=== PATIENT | male | born 1950 | race Caucasian/White ===

== ENCOUNTER 2018-01-27 17:45 | Observation (INO) | payer MEDICARE ==
--- NOTE | 2018-01-27 18:11 | RAD ---
PORTABLE CHEST ONE VIEW: 01/27/18 at 5:10 p.m. HISTORY: Chest pain. FINDINGS: Comparison is made with exam of 03/14/17. The heart size is normal. The aorta is tortuous. The lungs are well expanded without lobar consolidat ion, pneumothoraces or pleural effusions. IMPRESSION: No acute process. POS: H
[2018-01-27 18:15] LABS: #Basophils 0.1 thou/uL (0.0-0.2); #Eosinphils 0.3 thou/uL (0.0-0.7); #Lymphocytes 2.4 thou/uL (1.20-3.40); #Monocytes 0.5 thou/uL (0.11-0.59); #Neutrophils 2.6 thou/uL (1.40-6.50); %Basophils 0.9 % (0.0-1.0); %Eosinophils 5.1 % (0.0-10.0); %Lymphocytes 40.7 % (21.0-51.0); %Neutrophils 44.4 % (42.0-75.0); Hemoglobin 14.4 g/dL (14.0-18.0); Mean Corpuscular HGB CONC 35.8 g/dL (32.0-36.0); Mean Corpuscular Hemoglobin 32.1 pg (27.0-31.0); Mean Corpuscular Volume 89.6 fL (78.0-98.0); Mean Platelet Volume 6.8 fL (7.4-10.4); Platelet Count 169 thou/uL (130-400); RBC Distribution Width 13.1 % (11.5-14.5); White Blood Cell (WBC) Count 5.9 thou/uL (4.8-10.8)
[2018-01-27 18:34] LABS: ALT (SGPT) 13 U/L (8-55); AST (SGOT) 15 U/L (5-34); Albumin 4.3 g/dL (3.4-4.8); Alkaline Phosphatase 62 U/L (40-150); Anion Gap 14 mmol/L (10-20); BUN (Urea Nitrogen) 11 mg/dL (8.4-25.7); Bilirubin, Total 0.5 mg/dL (0.2-1.2); CK (CPK) 65 U/L (30-200); Calc. Creatinine Clearance 0 mL/min (70-130); Calcium 8.9 mg/dL (7.8-10.44); Carbon Dioxide 20 mmol/L (23-31); Chloride 109 mmol/L (98-107); Estimated GFR-MDRD 83; Globulin 2.5 g/dL (2.4-3.5); Glucose 212 mg/dL (80-115); Lipase 35 U/L (8-78); Potassium 4.1 mmol/L (3.5-5.1); Protein, Total 6.8 g/dL (5.8-8.1); Sodium 139 mmol/L (136-145)
[2018-01-27 18:41] LABS: CKMB 0.8 ng/mL (0-6.6); Troponin I Less than 0.010 ng/mL (< 0.028)
[2018-01-27] MEDS ORDERED: Nitroglycerin 2% Ointment 1 INCH/1 GM Packet ONE (18:56)
[2018-01-27 21:30] LABS: Troponin I Less than 0.010 ng/mL (< 0.028)
[2018-01-27] MEDS ORDERED: Ondansetron HCl/PF 4 MG/2 ML Vial IVP PRN (22:05)
[2018-01-27] MEDS ORDERED: Ondansetron ODT 4 MG TAB SL PRN (22:05)
[2018-01-27] MEDS ORDERED: Acetaminophen 325 MG TAB PO PRN (22:05)
[2018-01-27 22:08] VITALS: BMI 35.3
[2018-01-27] MEDS ORDERED: Dextrose 50% Abboject 50 ML SYRINGE SLOW IVP PRN (23:53)
[2018-01-27] MEDS ORDERED: HumaLOG 300 UNITS/3 ML VIAL SC PRN (23:53)
[2018-01-27] MEDS ORDERED: Dextrose 5% in Water 1,000 ML IV PRN (23:53)
[2018-01-28 01:14] LABS: Troponin I Less than 0.010 ng/mL (< 0.028)
--- NOTE | 2018-01-28 03:58 | HP ---
CODE STATUS: Patient is FULL CODE. PRIMARY CARE PHYSICIAN: from Cindy. TIME OF EVALUATION: 7:40 p.m. CHIEF COMPLAINT: Chest pain. HISTORY OF PRESENT ILLNESS: This is a 67-year-old male patient with past medical history of hyperten daphney, diabetes, hyperlipidemia, previous stent placement, medical noncompliance. Patient came to the hospital after having a chest pain that started when he was watching a movie, this was around 5:00 p .m. Chest pain was 6/10, probably it could get worse, the pain radiated to the jaw, associated with headache. No clear triggers, no alleviating factors. REVIEW OF SYSTEMS: Constitutional: No fever, no chills, generalized weakness. Respiratory: No cou gh, no sputum production or shortness of breath. Cardiovascular: No chest pain as mentioned above. Gastrointestinal: No nausea, vomiting, diarrhea or abdominal pain. 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 Patient re ported headache associated with the chest pain feeling lightheaded. Genitourinary: No burning on ur ination. Extremities: No leg swelling. All other systems were reviewed and are negative except for the findings mentioned above. PAST MEDICAL HISTORY: Positive for coronary artery disease, prostate cancer, diabetes, hyperlipidemi a, hypertension PAST SURGICAL HISTORY: History of hernia repair, prostatectomy. PSYCHIATRIC HISTORY: No previous psychiatric history. SOCIAL HISTORY: Patient drinks socially, every week, no drugs. Quit smoking 25 years ago. Lives in home with family. FAMILY HISTORY: Reported as negative. DRUG ALLERGIES: No known drug allergies. REPORTED MEDICATIONS: Coenzyme Q10, aspirin, lisinopril, metformin, allopurinol, isosorbide mononitr ate, Effient, Protonix, atorvastatin, metoprolol, also patient reported no compliance. PHYSICAL EXAMINATION: VITAL SIGNS: On presentation, blood pressure 115/79 with heart rate 79, respiratory rate was 16, tem perature 98, pain is 6/10, oxygen saturation 94% on room air. GENERAL APPEARANCE: The patient is alert, oriented, not in any acute distress. HEENT: Eye, normal conjunctivae. Moist oral mucosa. Anicteric. NECK: No JVD. RESPIRATORY: Bilateral air entry. No rales, no wheezing. Symmetric expansion. CARDIOVASCULAR: Normal rate, regular rhythm. No murmurs, no gallop. No edema. ABDOMEN: Soft, normal bowel sounds. MUSCULOSKELETAL: Baseline range of motion and strength. No tenderness. SKIN: Warm and intact. No pallor, no rash, no redness. NEUROLOGIC: Baseline sensory. No evidence of any new focal weakness. Baseline speech. Cranial ner ve seems to be intact. PSYCHIATRIC: Patient is in a good mood. No anxiety, oriented, optimal judgment. IMAGING: EKG was reviewed. The patient had normal sinus rhythm with a rate of 72 with TX 164, QRS 8 0, QT corrected 459. Normal EKG. The chest x-ray was reviewed. The patient had no acute process. LABORATORY DATA: Reviewed. White count 5.9, hemoglobin 14.4, MCV 89.6, platelet count 269,000. Sod ium 139, potassium 4.1, chloride 109, carbon dioxide 20, glucose 212. Troponin was negative x3. ASSESSMENT AND PLAN: The patient will be placed in the hospital with following medical problems: 1. Chest pain, rule out acute coronary syndrome. Patient has a strong cardiac history with previous stent placement, high risk for coronary artery disease. Patient has high for stress test, the refore we consult Cardiology. We will follow recommendations. Chest pain is typical. Patient has r eported history of noncompliance. We will reconcile home medications as per last reconciliation. 2. Controlled hypertension. We will reconcile home medications. We will adjust treatment as needed. 3. Uncontrolled diabetes with hyperglycemia, blood sugar 212, we will reconcile home medications. We will place the patient on sliding scale, low-carbohydrate diet. 4. Hyperlipidemia, advised to be on a low-cholesterol diet, we will reconcile home medications. 5. Deep venous thrombosis prophylaxis.
[2018-01-28] MEDS ORDERED: Nitroglycerin 2% Ointment 1 INCH/1 GM Packet TOP SCH (06:00)
[2018-01-28 07:21] LABS: #Eosinphils 0.3 thou/uL (0.0-0.7); #Lymphocytes 2.2 thou/uL (1.20-3.40); #Monocytes 0.7 thou/uL (0.11-0.59); #Neutrophils 3.3 thou/uL (1.40-6.50); %Basophils 0.2 % (0.0-1.0); %Eosinophils 4.5 % (0.0-10.0); %Monocytes 10.1 % (0.0-10.0); %Neutrophils 51.2 % (42.0-75.0); Hemoglobin 14.3 g/dL (14.0-18.0); Mean Corpuscular HGB CONC 33.9 g/dL (32.0-36.0); Mean Corpuscular Hemoglobin 30.7 pg (27.0-31.0); Mean Corpuscular Volume 90.6 fL (78.0-98.0); Mean Platelet Volume 7.1 fL (7.4-10.4); Platelet Count 151 thou/uL (130-400); RBC Distribution Width 13.2 % (11.5-14.5); Red Blood Cell (RBC) Count 4.65 mill/uL (4.70-6.10); White Blood Cell (WBC) Count 6.5 thou/uL (4.8-10.8)
[2018-01-28 07:43] LABS: Anion Gap 15 mmol/L (10-20); BUN (Urea Nitrogen) 11 mg/dL (8.4-25.7); Calc. Creatinine Clearance 119 mL/min (70-130); Calcium 8.9 mg/dL (7.8-10.44); Carbon Dioxide 22 mmol/L (23-31); Chloride 107 mmol/L (98-107); Estimated GFR-MDRD Greater than 90; Glucose 150 mg/dL (80-115); Potassium 4.1 mmol/L (3.5-5.1); Sodium 140 mmol/L (136-145)
[2018-01-28] MEDS ORDERED: Milk Of Magnesia 30 ML UDCUP PO PRN (08:31)
[2018-01-28] MEDS ORDERED: Acetaminophen 325 MG TAB PO PRN (08:31)
[2018-01-28] MEDS ORDERED: Ondansetron HCl/PF 4 MG/2 ML Vial IVP PRN (08:31)
[2018-01-28] MEDS ORDERED: Sodium Chloride 0.65% Nasal 44 ML BOT EA NARE PRN (08:31)
[2018-01-28] MEDS ORDERED: Nitroglycerin 0.4 MG TAB (25 Tab Bottle) SL PRN (08:31)
[2018-01-28] MEDS ORDERED: Artificial Tear Sol 15 ML BOT EA EYE PRN (08:31)
[2018-01-28] MEDS ORDERED: Loperamide HCl 2 MG CAP PO PRN (08:31)
[2018-01-28] MEDS ORDERED: Eucerin (Mineral Oil/Petrolatum,White) 30 gm Jar TOP PRN (08:31)
[2018-01-28] MEDS ORDERED: Diabetic Tussin 200 MG/10 ML UDCUP PO PRN (08:31)
[2018-01-28] MEDS ORDERED: Loratadine 10 MG TAB PO PRN (08:31)
[2018-01-28] MEDS ORDERED: hydrALAZINE 20 MG/ML VIAL SLOW IVP PRN (08:31)
[2018-01-28] MEDS ORDERED: Zolpidem Tartrate 5 MG TAB PO PRN (08:31)
[2018-01-28] MEDS ORDERED: Famotidine 20 MG TAB PO PRN (08:31)
[2018-01-28] MEDS ORDERED: HYDROcodone/Acetaminophen 5/325 mg Tablet PO PRN (08:31)
[2018-01-28] MEDS ORDERED: Senokot 8.6 MG TAB PO PRN (08:31)
[2018-01-28] MEDS ORDERED: Mag-Al 1200 mg/1200 mg/30 ML UDCUP PO PRN (08:31)
[2018-01-28] MEDS ORDERED: Ondansetron ODT 4 MG TAB PO PRN (08:31)
[2018-01-28] MEDS ORDERED: Chloraseptic Spray 180 ml Bottle PO PRN (08:31)
[2018-01-28] MEDS ORDERED: Aspirin 325 MG TAB PO SCH (09:00)
[2018-01-28] MEDS ORDERED: Lisinopril 20 MG TAB PO SCH ×2 (09:00→21:00)
[2018-01-28 09:02] LABS: Cardiac Risk 3.5 (Less than 4.5)
[2018-01-28] MEDS: Enoxaparin Sodium 40 MG/0.4 ML SYRINGE SC SCH (10:25)
[2018-01-28] MEDS: Ubidecarenone 50 MG CAP PO SCH (10:26)
[2018-01-28] MEDS: Metoprolol Tartrate 25 MG TAB PO SCH ×2 (10:26→21:17)
[2018-01-28] MEDS: Prasugrel 10 MG TAB PO SCH (10:26)
--- NOTE | 2018-01-28 13:27 | PDOC.PN ---
- Subjective Encounter Start Date: 01/28/18 Encounter Start Time: 08:10 Patient seen and examined. No new complaints. No overnight events - Objective Resuscitation Status: Resuscitation Status FULL:Full Resuscitation MAR Reviewed: Yes Vital Signs & Weight: Vital Signs (12 hours) Temp Pulse Resp BP BP Pulse Ox 01/28/18 12:17 53 L 20 152/75 H 98 01/28/18 10:25 131/71 01/28/18 07:42 96.8 F L 57 L 18 131/71 98 01/28/18 04:10 97.7 F 55 L 18 163/74 H 99 Weight Weight 216 lb I&O: 01/27/18 01/28/18 01/29/18 06:59 06:59 06:59 Intake Total 240 Balance 240 Result Diagrams: 01/28/18 06:50 01/28/18 06:50 Additional Labs: Accuchecks 01/28/18 05:46 POC Glucose 132 H Phys Exam - Physical Examination Constitutional: NAD HEENT: PERRLA, moist MMs, sclera anicteric Neck: no JVD, supple Respiratory: no wheezing, no rales, no rhonchi Cardiovascular: RRR, no significant murmur, no rub Gastrointestinal: soft, non-tender, no distention, positive bowel sounds Musculoskeletal: no edema, pulses present Neurological: non-focal, normal sensation, moves all 4 limbs Lymphatic: no nodes Psychiatric: normal affect, A&O x 3 Skin: no rash, normal turgor Dx/Plan (1) Chest pain Code(s): R07.9 - CHEST PAIN, UNSPECIFIED Status: Acute (2) Back pain Code(s): M54.9 - DORSALGIA, UNSPECIFIED Status: Chronic (3) CAD (coronary artery disease) Code(s): I25.10 - ATHSCL HEART DISEASE OF [place] CORONARY ARTERY W/O ANG PCTRS Status: Chronic (4) DM2 (diabetes mellitus, type 2) Status: Chronic (5) Dyslipidemia Code(s): E78.5 - HYPERLIPIDEMIA, UNSPECIFIED Status: Chronic (6) GERD (gastroesophageal reflux disease) Code(s): K21.9 - GASTRO-ESOPHAGEAL REFLUX DISEASE WITHOUT ESOPHAGITIS Status: Chronic (7) Gout Code(s): M10.9 - GOUT, UNSPECIFIED Status: Chronic (8) HTN (hypertension) Code(s): I10 - ESSENTIAL (PRIMARY) HYPERTENSION Status: Chronic (9) Obesity (BMI 30.0-34.9) Code(s): E66.9 - OBESITY, UNSPECIFIED Status: Chronic - Plan cont current plan of care * medication reviewed as below * symptomatic treatment * cardiology consulted * based on cardiology will consider discharge. Review of Systems - Review of Systems Eyes: negative: Pain, Vision Change, Conjunctivae Inflammation, Eyelid Inflammation, Redness, Other ENT: negative: Ear Pain, Ear Discharge, Nose Pain, Nose Discharge, Nose Congestion, Mouth Pain, Mouth Swelling, Throat Pain, Throat Swelling, Other Respiratory: negative: Cough, Dry, Shortness of Breath, Hemoptysis, SOB with Excertion, Pleuritic Pain, Sputum, Wheezing Cardiovascular: negative: chest pain, palpitations, orthopnea, paroxysmal nocturnal dyspnea, edema, light headedness, other Gastrointestinal: negative: Nausea, Vomiting, Abdominal Pain, Diarrhea, Constipation, Melena, Hematochezia, Other Genitourinary: negative: Dysuria, Frequency, Incontinence, Hematuria, Retention , Other Musculoskeletal: negative: Neck Pain, Shoulder Pain, Arm Pain, Back Pain, Hand Pain, Leg Pain, Foot Pain, Other Skin: negative: Rash, Lesions, Jose, Bruising, Other - Medications/Allergies Allergies/Adverse Reactions: Allergies Allergy/AdvReac Type Severity Reaction Status Date / Time No Known Allergies Allergy Verified 01/27/18 22:07 Medications: Current Medications Acetaminophen (Tylenol) 650 mg PO Q4H PRN PRN Reason: Headache/Fever or Mild Pain Hydrocodone Bitart/Acetaminophen ([place] 5/325) 1 tab PO Q4H PRN PRN Reason: Moderate Pain (4-6) Al Hydroxide/Mg Hydroxide (Maalox) 15 ml PO Q4H PRN PRN Reason: Heartburn or Indigestion Artificial Tears (Tears Renewed 15ml Bottle) 0 drop EA EYE PRN PRN PRN Reason: Dry Eyes Aspirin (Aspirin Chewable) 81 mg PO DAILY [facility] Last Admin: 01/28/18 10:28 Dose: 81 mg Atorvastatin Calcium (Lipitor) 40 mg PO HS [facility] Coenzyme Q10 (Coenzyme Q10) 200 mg PO DAILY [facility] Last Admin: 01/28/18 10:26 Dose: 200 mg Dextrose/Water (Dextrose 50%) 25 gm SLOW IVP PRN PRN PRN Reason: Hypoglycemia Enoxaparin Sodium (Lovenox) 40 mg SC 0900 [facility] Last Admin: 01/28/18 10:25 Dose: 40 mg Famotidine (Pepcid) 20 mg PO BIDPRN PRN PRN Reason: Heartburn or Indigestion Glucagon (Glucagon) 1 mg IM PRN PRN PRN Reason: Hypoglycemia Guaifenesin (Robitussin Sf) 200 mg PO Q4H PRN PRN Reason: Cough Hydralazine HCl (Apresoline) 10 mg SLOW IVP Q4H PRN PRN Reason: Systolic BP > 180 Dextrose/Water (D5w) 1,000 mls @ 0 mls/hr IV .Q0M PRN; As Directed PRN Reason: Hypoglycemia Insulin Human Lispro (Humalog) 0 units SC .MILD SLIDING SCALE PRN PRN Reason: Mild Correctional Scale Isosorbide Mononitrate (Imdur) 120 mg PO DAILY [facility] Last Admin: 01/28/18 10:26 Dose: 120 mg Lisinopril (Zestril) 40 mg PO DAILY [facility] Last Admin: 01/28/18 10:25 Dose: Not Given Loperamide HCl (Imodium) 2 mg PO PRN PRN PRN Reason: Diarrhea/Loose Stools Loratadine (Claritin) 10 mg PO DAILYPRN PRN PRN Reason: Sinus Symptoms Magnesium Hydroxide (Milk Of Magnesium) 30 ml PO DAILYPRN PRN PRN Reason: Constipation Metoprolol Tartrate (Lopressor) 12.5 mg PO BID [facility] Last Admin: 01/28/18 10:26 Dose: 12.5 mg Mineral Oil/White Petrolatum (Eucerin Cream) 0 gm TOP BIDPRN PRN PRN Reason: Dry Skin Nitroglycerin (Nitrostat) 0.4 mg SL Q5MIN PRN PRN Reason: Chest Pain Ondansetron HCl (Zofran Odt) 4 mg PO Q6H PRN PRN Reason: Nausea/Vomiting Ondansetron HCl (Zofran) 4 mg IVP Q6H PRN PRN Reason: Nausea/Vomiting Pantoprazole Sodium (Protonix) 40 mg PO HS [facility] Phenol (Chloraseptic [place] 180 Ml Bot) 0 ml PO PRN PRN PRN Reason: Sore Throat Prasugrel (Effient) 10 mg PO DAILY [facility] Last Admin: 01/28/18 10:26 Dose: 10 mg Senna (Senokot) 2 tab PO HSPRN PRN PRN Reason: Constipation Sodium Chloride ([place] Nasal [place] 0.65%) 0 ml EA NARE QIDPRN PRN PRN Reason: Nasal Congestion Zolpidem Tartrate (Ambien) 5 mg PO HSPRN PRN PRN Reason: Insomnia
--- NOTE | 2018-01-28 15:22 | DIS ---
DATE OF ADMISSION: 01/27/2018 DATE OF DISCHARGE: 01/28/2018 PRIMARY CARE PHYSICIAN: Cindy Zazueta. DISCHARGE DISPOSITION: Home. PRIMARY DISCHARGE DIAGNOSIS: Chest pain, ruled out acute coronary syndrome. SECONDARY DISCHARGE DIAGNOSES: Chronic low back pain, coronary artery disease, diabetes type 2, hype rtension, dyslipidemia, gastroesophageal reflux disease, obesity with BMI 34, gout. PRIMARY PROCEDURE AND OPERATION: None. RADIOLOGICAL INVESTIGATION: Chest x-ray was normal. SIGNIFICANT LABORATORY DATA: WBC 6.5, hemoglobin 14.3, platelet 151. Sodium 140, potassium 4.1, BUN 11, creatinine 0.81, calcium 8.9. Cardiac enzymes negative x3. LDL 66. DISCHARGE MEDICATIONS: The patient will continue all his previous home medications, aspirin 81 mg p. o. daily, Lipitor 40 mg p.o. at bedtime, Imdur 120 mg p.o. daily, lisinopril 40 mg p.o. daily, metfor min 500 mg p.o. b.i.d., Lopressor 12.5 mg p.o. b.i.d., Protonix 40 mg p.o. at bedtime, Effient 10 mg p.o. daily, coenzyme Q10 200 mg p.o. daily. CONTRAINDICATIONS: None. CODE STATUS: FULL CODE. INPATIENT CONSULTANTS: Cardiology was consulted. TEST RESULTS PENDING ON DISCHARGE: None. ALLERGIES: No known drug allergy. DISCHARGE PLAN: Post hospital, the patient will follow up with primary care physician. HOSPITAL COURSE: A 67-year-old male who was admitted by Dr. Rodriguez for chest pain. Please see his H&P for further detail. The patient recently had a stress test done and that is why we consulted Ca rdiology. Patient had multiple risk factors for coronary artery disease as well as he has history of CAD with stenting. This time, his EKG was unremarkable. His troponins remain negative. His teleme try remained unremarkable. Cardiology was consulted. If Cardiology is okay, then we will consider d ischarging him home later on today. Depending upon cardiology evaluation, the patient most likely wi ll be discharged home on his previous medication. The patient is seen and examined at bedside today. Please see my progress note from today for furthe r details.
[2018-01-28] MEDS ORDERED: Atorvastatin Calcium 40 MG TAB PO SCH (21:00)
--- NOTE | 2018-01-29 05:38 | CON ---
DATE OF CONSULTATION: 01/28/2018 HISTORY OF PRESENT ILLNESS: Khris Smalls is a 67-year-old, white male, who is followed with Dr. Pugh for some time. In 2012, he has stent placement in the right coronary artery. He subsequently had restenosis and then repeat stenting of the right coronary artery. He was first seen here in 2014 and was found to have LAD disease and underwent stenting of that area. He had recurrent chest pain one month later, underwent repeat catheterization and had a patent stent. However, there is a jailed diagonal stenosis of 80% at the ostium. His last catheterization was in 02/2017. He again was found to have patent stents in the right coronary artery and the LAD, but had a 90% ostial diagonal branch stenosis. Mr. Smalls says that overall he has recently been doing well without any significant chest pain for the last 4 or 5 months. He was just seen in the office on 01/12/2018 without complaints. He now was sitting at a movie with his granddaughter and began to have substernal chest pressure that was more intense than what he has experienced and this lasted approximately 30 minutes. He came to the emergency room, and cardiac enzymes have been unremarkable. He does not have any nitroglycerin tablets or spray to use p.r.n. PAST MEDICAL HISTORY: Coronary artery disease, hypertension, diabetes, hypercholesterolemia, reflux, history of prostate carcinoma. OPERATIONS: Prostatectomy, hernia repair. MEDICATIONS: Aspirin 81 daily, atorvastatin 40 at bedtime, isosorbide mononitrate 120 q.a.m., lisinopril 40 q.a.m., metformin 500 b.i.d., metoprolol 12.5 b.i.d., Protonix 40 at bedtime, Effient 10 mg daily, CoQ10 at 200 mcg daily. ALLERGIES: None. SOCIAL HISTORY: He stopped smoking 25 years ago. He drinks. FAMILY HISTORY: Unremarkable. REVIEW OF SYSTEMS: Twelve-point review of systems is otherwise negative. PHYSICAL EXAMINATION: VITAL SIGNS: Blood pressure 158/72, pulse of 56. HEENT: PERRL. NECK: Supple. CHEST: Clear. CARDIAC: S1 and S2 are normal, without any S3, S4, or murmurs. ABDOMEN: Normal bowel sounds without tenderness. EXTREMITIES: Revealed no clubbing, cyanosis, or edema. NEUROLOGIC: Grossly intact. SKIN: Warm and dry. LABORATORY AND DIAGNOSTIC DATA: EKG reveals normal sinus rhythm and is unremarkable. CBC is unremarkable. Sodium 140, potassium 4.3, chloride 107, carbon dioxide 22, BUN 11, creatinine 0.81. Cholesterol 143, triglycerides 179 , HDL 41, LDL 66. Troponin I is negative x3. IMPRESSION: 1. Atypical chest discomfort. 2. Coronary artery disease with stent in the left anterior descending and the right coronary artery. He apparently has a 90% ostial diagonal stenosis. There is a jailed vessel. 3. Hypertension. 4. Diabetes. 5. Hypercholesterolemia, under good control. 6. Gastroesophageal reflux disease. 7. Prostate cancer. PLAN: I do not feel any further evaluation is warranted with patient having a catheterization less than 1 year ago. I did write a prescription for nitrolingual spray, so he can use this on a p.r.n. basis in the hopes of reducing the chance for readmission in the near future. I feel he may be discharged. PILAR
[2018-01-29 07:52] VITALS: BP 140/77; TEMP 97.9
[2018-01-29] MEDS: Metoprolol Tartrate 25 MG TAB PO SCH (08:16)
[2018-01-29] MEDS: Prasugrel 10 MG TAB PO SCH (08:17)
[2018-01-29] MEDS: Enoxaparin Sodium 40 MG/0.4 ML SYRINGE SC SCH (08:17)
[2018-01-29] MEDS: Ubidecarenone 50 MG CAP PO SCH (08:28)
== END 2018-01-29 08:51 | disposition home or self-care (01) ==
LOC: ERS 17:45 → 2NO 19:22
PROVIDERS: ADMIT Hospitalist; ATTEND Hospitalist
DX: R07.89 Other chest pain (principal); I10 Essential (primary) hypertension; E11.65 Type 2 diabetes mellitus with hyperglycemia; I25.10 Atherosclerotic heart disease of native coronary artery without angina pectoris; E78.00 Pure hypercholesterolemia, unspecified; E78.2 Mixed hyperlipidemia; G89.29 Other chronic pain; M54.5 Low back pain; M10.9 Gout, unspecified; K21.9 Gastro-esophageal reflux disease without esophagitis; E66.9 Obesity, unspecified; Z68.34 Body mass index [BMI] 34.0-34.9, adult; Z87.891 Personal history of nicotine dependence; Z91.14 Patient's other noncompliance with medication regimen; Z79.82 Long term (current) use of aspirin; Z79.84 Long term (current) use of oral hypoglycemic drugs; Z79.899 Other long term (current) drug therapy; Z95.5 Presence of coronary angioplasty implant and graft
CPT/HCPCS: 71045; 80048; 80053; 80061; 82550; 82553; 82962 ×2; 83690; 84484 ×3; 85025 ×2; 93005; 94760 ×2; 96372; 99285; G0378 ×2; 36415; 36416; A4216; J1650

== ENCOUNTER 2018-04-02 21:17 | Emergency (ER) | payer MEDICARE ==
--- NOTE | 2018-04-02 22:10 | CT ---
CERVICAL SPINE CT WITHOUT CONTRAST 04/02/18 COMPARISON: None. HISTORY: Trauma, pain. TECHNIQUE: Serial axial CT imaging at 2.5 mm intervals from skull base through lung apices without contrast. Cor onal and sagittal reformatted imaging obtained. FINDINGS: The visualized lung apices appear grossly unremarkable. The C1 ring is intact. The occipital condyles, the dense, and the C1-2 articulation demonstrate no ac [place] findings. There is mild degenerative change at the atlantoaxial interspace. Craniocervical and cervicothoracic junctions appear intact. There is disc space narrowing and posterior osteophytes formation at C4-5, C5-6 and C6-7. There is pr ominent facet hypertrophy on the left at C3-4 and C4-5 and on the right at C2-3. There is no preverte bral soft tissue swelling, displaced fracture or evidence of dislocation. IMPRESSION: Multilevel cervical spine degenerative change. No acute fracture or dislocation noted. POS: [facility]
--- NOTE | 2018-04-02 22:12 | CT ---
HEAD CT WITHOUT CONTRAST 04/02/18 COMPARISON: 02/21/08. HISTORY: Fall, trauma, pain. TECHNIQUE: Serial axial CT imaging at 5 mm intervals from vertex through skull base without contrast. FINDINGS: The imaged paranasal sinuses and mastoid air cells are well aerated. There is no displaced calvarial fracture. No intracranial hemorrhage, midline shift or mass effect. There is multifocal white matter hypodensity suggesting small vessel disease, stable. No midline shift or mass effect. There is atherosclerotic calcification of the cavernous carotid jie enrique. IMPRESSION: No intracranial hemorrhage or displaced calvarial fracture. POS: [facility]
== END 2018-04-02 22:09 | disposition home or self-care (01) ==
LOC: ERS 21:17
DX: S00.81XA Abrasion of other part of head, initial encounter (principal); I25.10 Atherosclerotic heart disease of native coronary artery without angina pectoris; E11.9 Type 2 diabetes mellitus without complications; E78.5 Hyperlipidemia, unspecified; I10 Essential (primary) hypertension; Z79.84 Long term (current) use of oral hypoglycemic drugs; Z79.82 Long term (current) use of aspirin; Z79.899 Other long term (current) drug therapy; W10.9XXA Fall (on) (from) unspecified stairs and steps, initial encounter
CPT/HCPCS: 70450; 72125

== ENCOUNTER 2019-02-23 19:44 | Observation (INO) | payer MEDICARE ==
[2019-02-23 20:19] LABS: #Basophils 0.1 thou/uL (0.0-0.2); #Eosinphils 0.4 thou/uL (0.0-0.7); #Monocytes 0.7 thou/uL (0.11-0.59); #Neutrophils 3.9 thou/uL (1.40-6.50); %Eosinophils 4.9 % (0.0-10.0); %Lymphocytes 37.1 % (21.0-51.0); %Monocytes 8.9 % (0.0-10.0); %Neutrophils 48.2 % (42.0-75.0); Hemoglobin 14.7 g/dL (14.0-18.0); Mean Corpuscular HGB CONC 35.6 g/dL (32.0-36.0); Mean Corpuscular Hemoglobin 31.5 pg (27.0-31.0); Mean Corpuscular Volume 88.4 fL (78.0-98.0); Mean Platelet Volume 7.6 fL (7.4-10.4); Platelet Count 181 thou/uL (130-400); Red Blood Cell (RBC) Count 4.67 mill/uL (4.70-6.10); White Blood Cell (WBC) Count 8.1 thou/uL (4.8-10.8)
[2019-02-23 20:38] LABS: ALT (SGPT) 17 U/L (8-55); AST (SGOT) 18 U/L (5-34); Albumin 4.6 g/dL (3.4-4.8); Alkaline Phosphatase 62 U/L (40-150); Anion Gap 13 mmol/L (10-20); BUN (Urea Nitrogen) 12 mg/dL (8.4-25.7); Bilirubin, Total 0.5 mg/dL (0.2-1.2); CK (CPK) 61 U/L (30-200); Calc. Creatinine Clearance 0 mL/min (70-130); Calcium 9.3 mg/dL (7.8-10.44); Carbon Dioxide 21 mmol/L (23-31); Chloride 108 mmol/L (98-107); Estimated GFR-MDRD 88; Globulin 2.6 g/dL (2.4-3.5); Glucose 159 mg/dL (80-115); Protein, Total 7.2 g/dL (5.8-8.1); Sodium 138 mmol/L (136-145)
--- NOTE | 2019-02-23 20:38 | RAD ---
RADIOGRAPH CHEST 1 VIEW: DATE: 02/23/2019 HISTORY: 68-year-old male with chest pain FINDINGS: There are no airspace densities, pulmonary edema, pneumothorax, or cardiomegaly. The lateral costophr enic angles are sharp. IMPRESSION: No acute cardiopulmonary findings.
[2019-02-23] MEDS ORDERED: Nitroglycerin 0.4 MG TAB 1 EACH ONE (20:53)
[2019-02-23] MEDS ORDERED: Nitroglycerin 0.4 MG TAB (25 Tab Bottle) PO PRN (22:39)
[2019-02-23] MEDS ORDERED: Senokot S 8.6-50 MG TAB PO PRN (22:39)
[2019-02-23] MEDS ORDERED: Dextrose 5% in Water 1,000 ML IV PRN (22:39)
[2019-02-23] MEDS ORDERED: Acetaminophen 325 MG TAB PO PRN (22:39)
[2019-02-23] MEDS ORDERED: Bisacodyl 10 MG SUPP PR PRN (22:39)
[2019-02-23] MEDS ORDERED: Dextrose 50% Abboject 50 ML SYRINGE SLOW IVP PRN (22:39)
[2019-02-23] MEDS ORDERED: HumaLOG 300 UNITS/3 ML VIAL SC PRN (22:39)
[2019-02-23] MEDS ORDERED: Guaifenesin DM 100-10/5 ML UDCUP PO PRN (22:39)
[2019-02-23 23:24] LABS: Troponin I Less than 0.010 ng/mL (< 0.028)
[2019-02-23 23:59] VITALS: BMI 34.5
--- NOTE | 2019-02-24 01:16 | HP ---
REASON FOR ADMISSION: Chest pain. HISTORY OF PRESENTING ILLNESS: The patient developed chest pain which was all across his chest. This was also radiating to the mid back area. He developed headache and nausea, this happened around 6:45 pm. He was planning to watch the [employer] game when prior to this happened. The patient says his pain was 8/10 in intensity and it is easing up. No complaints of palpitations or PND. No complaints of fever, cough, or expectoration. The patient had seen Dr. Pugh last week and has a scheduled stress test on the of next month and has an echo scheduled for the of next month. PAST MEDICAL AND SURGICAL HISTORY: History of coronary artery disease with prior stent to RCA and LAD. Last coronary angiogram done in February of 2017, showed patent stent to RCA and LAD, had 90% ostial diagonal branch stenosis. Echo done in February of 2017 showed EF of 55%, hypertension, dyslipidemia, prostatectomy with history of prostate cancer, hernia repair. CURRENT MEDICATIONS: The patient is on: 1. Aspirin 81 mg p.o. daily. 2. Effient 10 mg daily. 3. Atorvastatin 40 mg p.o. at bedtime. 4. Lisinopril 40 mg p.o. daily. 5. Lopressor 12.5 mg twice daily. 6. Protonix 40 mg p.o. at bedtime. 7. CoQ10 200 mg p.o. daily. 8. Metformin 1000 mg p.o. twice daily. He says that Dr. Pugh added a new medication, which is 5 mg daily, he cannot recall the same. ALLERGIES: NO KNOWN DRUG ALLERGIES. PERSONAL HISTORY: Quit smoking in 1988. Does not abuse alcohol or drugs. He lives with his . He ambulates by himself. FAMILY HISTORY: Mother is living and is 89 years old, she has blindness and sensorineural deafness as well. Father in his 80s. He had history of coronary artery disease. CODE STATUS: Full. Power of contracts attorney is his , Ms. Block. REVIEW OF SYSTEMS: CONSTITUTIONAL: Negative for weight loss or gain, ability to conduct usual activities. SKIN: Negative for rash, itching. EYES: Negative for double vision, pain. ENT/MOUTH: Negative for nose bleeding, neck stiffness, pain, tenderness. CARDIOVASCULAR: Negative for palpitations, dyspnea on exertion, orthopnea. RESPIRATORY: Negative for shortness of breath, wheezing, cough, hemoptysis, fever or night sweats. GASTROINTESTINAL: Negative for poor appetite, abdominal pain, heartburn, nausea , vomiting, constipation, or diarrhea. GENITOURINARY: Negative for urgency, frequency, dysuria, nocturia. MUSCULOSKELETAL: Negative for pain, swelling. NEUROLOGIC/PSYCHIATRIC: Negative for anxiety, depression. ALLERGY/IMMUNOLOGIC: Negative for skin rash, bleeding tendency. PHYSICAL EXAMINATION: GENERAL: The patient is a 68-year-old male who is currently not in any acute distress and is chest pain-free. VITAL SIGNS: Blood pressure 140/78, pulse 76 per minute, respiratory rate 16 per minute, temperature 98.1 degrees Fahrenheit, saturating 96% on room air. NECK: Supple. No exudates seen. CARDIOVASCULAR: S1 and S2 heard, regular rhythm. RESPIRATORY: Air entry 1+ bilateral. Scattered rhonchi plus no rales or wheezes. ABDOMEN: Soft. Bowel sounds heard. No tenderness, rigidity, or guarding. EXTREMITIES: No peripheral edema or calf tenderness. VASCULAR: Peripheral pulses 1+ bilateral. No ischemic ulcerations or gangrene. CENTRAL NERVOUS SYSTEM: No gross focal deficits noted. The patient is alert, awake, oriented well. PSYCHIATRIC: The patient's mood is euthymic. No hallucinations or delusions. LABORATORY DATA: EKG done shows normal sinus rhythm at 70 beats per minute. There is poor R-wave progression seen. Chest x-ray done shows no acute cardiopulmonary abnormalities. Troponin x2 negative. LFTs are within normal limits. Albumin 4.6. BUN 12, creatinine 0.86, serum glucose 159. Serum bicarb is 21. White count of 8, H and H 14 and 47, platelet count is 181, MCV is 88 with 48% neutrophils. CLINICAL IMPRESSION AND PLAN: The patient will be under observation on telemetry for chest pain with history of coronary artery disease and multiple risk factors. We will obtain one more set of troponin and follow acute coronary syndrome evidence based protocol. He will be having a nuclear stress test as well. We will keep him n.p.o. after midnight. We will continue his aspirin, Lipitor, prasugrel, lisinopril, metoprolol, Protonix, and CoQ10 as before. Metformin will be held for now. We will continue to closely monitor him on telemetry. Job ID: [id number] [facility]
[2019-02-24 01:56] LABS: #Basophils 0.1 thou/uL (0.0-0.2); #Eosinphils 0.4 thou/uL (0.0-0.7); #Lymphocytes 3.1 thou/uL (1.20-3.40); #Monocytes 0.7 thou/uL (0.11-0.59); #Neutrophils 3.1 thou/uL (1.40-6.50); %Basophils 1.2 % (0.0-1.0); %Eosinophils 4.8 % (0.0-10.0); %Lymphocytes 42.2 % (21.0-51.0); %Monocytes 9.5 % (0.0-10.0); %Neutrophils 42.3 % (42.0-75.0); Hemoglobin 14.6 g/dL (14.0-18.0); Mean Corpuscular HGB CONC 35.4 g/dL (32.0-36.0); Mean Corpuscular Hemoglobin 31.6 pg (27.0-31.0); Mean Corpuscular Volume 89.1 fL (78.0-98.0); Mean Platelet Volume 7.6 fL (7.4-10.4); Platelet Count 165 thou/uL (130-400); RBC Distribution Width 12.1 % (11.5-14.5); Red Blood Cell (RBC) Count 4.61 mill/uL (4.70-6.10); White Blood Cell (WBC) Count 7.3 thou/uL (4.8-10.8)
[2019-02-24 02:16] LABS: Troponin I Less than 0.010 ng/mL (< 0.028)
[2019-02-24 02:35] LABS: Anion Gap 16 mmol/L (10-20); BUN (Urea Nitrogen) 13 mg/dL (8.4-25.7); Calc. Creatinine Clearance 98 mL/min (70-130); Calcium 9.2 mg/dL (7.8-10.44); Carbon Dioxide 21 mmol/L (23-31); Cardiac Risk 3.2 (Less than 4.5); Chloride 109 mmol/L (98-107); Cholesterol 103 mg/dl (< 200 Desired); Estimated GFR-MDRD 77; Glucose 124 mg/dL (80-115); HDL Cholesterol 32 mg/dL (>60 Neg Risk); LDL Cholesterol, Calculated 45 mg/dL; Potassium 3.9 mmol/L (3.5-5.1); Sodium 142 mmol/L (136-145); Triglycerides 128 mg/dL (Less than 150)
[2019-02-24] MEDS ORDERED: Metoprolol Tartrate 25 MG TAB PO SCH (09:00)
[2019-02-24] MEDS ORDERED: Famotidine 20 MG TAB PO SCH (09:00)
[2019-02-24] MEDS ORDERED: Enoxaparin Sodium 40 MG/0.4 ML SYRINGE SC SCH (09:00)
[2019-02-24] MEDS ORDERED: Amlodipine 5 MG TAB PO SCH (09:00)
[2019-02-24] MEDS ORDERED: Aspirin Chewable 81 MG TAB PO SCH (09:00)
[2019-02-24] MEDS ORDERED: Lisinopril 20 MG TAB PO SCH (09:00)
[2019-02-24] MEDS ORDERED: Prasugrel 10 MG TAB PO SCH (09:00)
[2019-02-24] MEDS ORDERED: Ubidecarenone 50 MG CAP PO SCH (09:00)
--- NOTE | 2019-02-24 12:12 | NM ---
EXAM: Nuclear medicine cardiac SPECT with EF and wall motion: HISTORY: Chest pain Protocol: Exam was performed using treadmill stress protocol. The patient is injected with30.2 millicuries of technetium 99m sestamibi intravenously for stress keya ges. The patient is injected with10.4 millicuries of technetium 99 sestamibi intravenously for resting keya ges. Multiple SPECT images are performed in the short axis, vertical long axis, and horizontal long axis. FINDINGS: No scan evidence for infarct or ischemia. TID:1.24 LHR:0.37 EDV:80 mL EF:63% Wall motion:Normal IMPRESSION: No scan evidence for infarct or ischemia. TID 1.24 Little change from prior exam, 08/19/2016
[2019-02-24 12:13] VITALS: BP 127/64; TEMP 98.5
[2019-02-24] MEDS ORDERED: Atorvastatin Calcium 40 MG TAB PO SCH (21:00)
--- NOTE | 2019-02-26 01:20 | DIS ---
DATE OF ADMISSION: 02/23/2019 DATE OF DISCHARGE: 02/24/2019 DISCHARGE DIAGNOSES: 1. Chest pain with nausea. 2. History of coronary artery disease. 3. Hyperlipidemia. 4. Hypertension. 5. Diabetes mellitus. HISTORY OF PRESENT ILLNESS: This patient is a 68-year-old male who is closely followed by Dr. Pugh for history of coronary artery disease. The patient had recently seen Dr. Pugh and had a stress test set up for February 28. The patient was at home at rest when he developed some chest pain across the entire chest, radiating to the mid back and associated with some nausea. He subsequently presented to the emergency department where he had a negative EKG and troponins x2. He was subsequently placed on observation status. HOSPITAL COURSE: The patient remained in observation status on telemetry with no significant findings. He had no significant findings on his monitor. He underwent a nuclear medicine stress test, which was unremarkable. His pain had completely resolved. He had no recurrences and felt completely back to his baseline. PHYSICAL EXAMINATION: VITAL SIGNS: His temperature was 98.5, pulse 65, respirations 16, O2 saturation 99% on room air, BP 127/64. GENERAL: He was awake and alert. HEART: Regular rate and rhythm. LUNGS: Clear bilaterally. ABDOMEN: Soft, nontender, and nondistended. EXTREMITIES: No edema. The patient was eating well, ambulating without difficulty, and felt stable for discharge to home. DISPOSITION: The patient is discharged home. He is to remain on a diabetic heart healthy diet. His activity level is as tolerated. His medications will remain unchanged. Please see the discharge medication list for further details. He is to make an appointment to follow up with Dr. Pugh and Dr. Brant Osorio in 7 days. He can return to the hospital should he have any problems prior to that time. Job ID: [id number]
== END 2019-02-24 14:10 | disposition home or self-care (01) ==
LOC: ERS 19:44 → 2SW 22:34
PROVIDERS: ADMIT Internal Medicine; ATTEND Internal Medicine
DX: R07.9 Chest pain, unspecified (principal); R11.0 Nausea; I25.10 Atherosclerotic heart disease of native coronary artery without angina pectoris; I10 Essential (primary) hypertension; E11.9 Type 2 diabetes mellitus without complications; E78.5 Hyperlipidemia, unspecified; Z95.5 Presence of coronary angioplasty implant and graft; Z79.82 Long term (current) use of aspirin; Z79.84 Long term (current) use of oral hypoglycemic drugs; Z79.899 Other long term (current) drug therapy; Z87.891 Personal history of nicotine dependence
CPT/HCPCS: 71045; 78452; 80048; 80053; 80061; 82550; 82962; 84484 ×3; 85025 ×2; 93005; 93017; 94760; 96372; 99285; A9500; G0378 ×3; 36415; 36416; J1650